=== PATIENT | male | born 1990 | race Hispanic/Latino ===

== ENCOUNTER 2019-01-04 20:06 | Emergency (ER) | payer BC ==
--- NOTE | 2019-01-04 22:11 | RAD REPORT ---
EXAM DESCRIPTION: US - Abdomen Exam Limited - 01/04/2019 9:50 pm CLINICAL HISTORY: Abdominal pain. COMPARISON: None. FINDINGS: The patient was not NPO. Consequently the gallbladder is contracted limiting evaluation. A gallstone is not visualized. The evaluation of gallbladder wall thickness nondiagnostic due to the contraction. The biliary tree is normal caliber. IMPRESSION: Grossly normal gallbladder ultrasound
[2019-01-04] MEDS ORDERED: SUCRALFATE 1 GM TABLET ONE (23:13)
--- NOTE | 2019-01-04 23:48 | ER ---
Nurse's Notes [facility] Name: Santosh Black Age: 28 yrs Sex: Male : 1990 Arrival Date: 01/04/2019 Time: 20:10 Bed 25 Private MD: Diagnosis: Unspecified abdominal pain Presentation: 01/04 20:15 Presenting complaint: Patient states: RUQ pain that started this afternoon. Transition aj of care: patient was not received from another setting of care. Onset of symptoms was January 04, 2019. Risk Assessment: Do you want to hurt yourself or someone else? Patient reports no desire to harm self or others. Initial Sepsis Screen: Does the patient meet any 2 criteria? No. Patient's initial sepsis screen is negative. Does the patient have a suspected source of infection? No. Patient's initial sepsis screen is negative. Care prior to arrival: None. 20:15 Method Of Arrival: Ambulatory aj 20:15 Acuity: JOHNSON 3 aj Triage Assessment: 20:18 General: Appears in no apparent distress. comfortable, Behavior is calm, cooperative, aj appropriate for age. Pain: Complains of pain in right upper quadrant. Neuro: Level of Consciousness is awake, alert, obeys commands, Oriented to person, place, time, situation, Appropriate for age. Respiratory: Airway is patent Respiratory effort is even, unlabored, Respiratory pattern is regular, symmetrical. GI: Abdomen is flat, non-distended, Reports upper abdominal pain. Derm: Skin is intact, is healthy with good turgor, Skin is pink, warm \T\ dry. normal. Historical: - Allergies: 20:18 No Known Allergies; aj - Home Meds: 20:18 None [Active]; aj - PMHx: 20:18 None; aj - PSHx: 20:18 None; aj - Immunization history:: Adult Immunizations up to date. - Social history:: Smoking status: Patient/guardian denies using tobacco. - Ebola Screening: : Patient negative for fever greater than or equal to 101.5 degrees Fahrenheit, and additional compatible Ebola Virus Disease symptoms Patient denies exposure to infectious person Patient denies travel to an Ebola-affected area in the 21 days before illness onset No symptoms or risks identified at this time. Screenin:08 Abuse screen: Denies threats or abuse. Denies injuries from another. Nutritional mg2 screening: No deficits noted. On. Tuberculosis screening: No symptoms or risk factors identified. Fall Risk None identified. Assessment: 21:09 General: Appears in no apparent distress. comfortable, Behavior is calm, cooperative. mg2 Pain: Complains of pain in right upper quadrant Pain does not radiate. Pain currently is 4 out of 10 on a pain scale. Quality of pain is described as aching, Pain began gradually. Neuro: Level of Consciousness is awake, alert, obeys commands, Oriented to person, place, time, situation. Cardiovascular: Capillary refill < 3 seconds Patient's skin is warm and dry. Respiratory: Airway is patent Respiratory effort is even, unlabored, Respiratory pattern is regular, symmetrical. GI: Bowel sounds present X 4 quads. Abd is soft X 4 quads. GI: Reports upper abdominal pain. : No signs and/or symptoms were reported regarding the genitourinary system. EENT: No signs and/or symptoms were reported regarding the EENT system. Derm: Skin is intact, is healthy with good turgor, Skin is pink, warm \T\ dry. normal. Musculoskeletal: Circulation, motion, and sensation intact. Capillary refill < 3 seconds. 23:50 Reassessment: Patient states feeling better. Patient states symptoms have improved. mg2 Vital Signs: 20:18 BP 102 / 52; Pulse 74; Resp 16; Temp 99.0; Pulse Ox 95% on R/A; Weight 94.8 kg; Height aj 5 ft. 11 in. (180.34 cm); 21:10 BP 115 / 60; Pulse 75; Resp 18; Pulse Ox 100% on R/A; mg2 01/05 00:04 BP 107 / 48; Pulse 78; Resp 18; Temp 98; Pulse Ox 100% on R/A; Pain 0/10; mg2 01/04 20:18 Body Mass Index 29.15 (94.80 kg, 180.34 cm) aj ED Course: 01/04 20:10 Patient arrived in ED. ds1 20:16 Triage completed. aj 20:18 Arm band placed on right wrist. Patient placed in waiting room, Patient notified of aj wait time. 20:59 [facility]C [facility] sn 20:59 Cesar Cruz MD is Attending Physician. sn 20:59 Gardose, João, RN is Primary Nurse. mg2 21:10 Patient has correct armband on for positive identification. mg2 21:10 No provider procedures requiring assistance completed. mg2 21:36 CT Stone Protocol In Process Unspecified. EDMS 21:50 US Abdomen Limited In Process Unspecified. EDMS 01/05 00:03 Patient did not have IV access during this emergency room visit. mg2 Administered Medications: 01/04 23:01 Drug: CarafATE 1 grams Route: PO; mg2 Outcome: 23:47 Discharge ordered by MD. currie 01/05 00:03 Discharged to home ambulatory. mg2 Condition: stable Discharge instructions given to patient, family, Instructed on discharge instructions, follow up and referral plans. medication usage, Demonstrated understanding of instructions, follow-up care, medications, Prescriptions given X 1. 00:05 Patient left the ED. mg2 Signatures: Dispatcher [employer] Roberta Anna, RN RN Lou Britton, PURSE FRAMER-C PURSE FRAMER-Csnw Louann Hernandez ds1 João Fry, RN RN mg2
--- NOTE | 2019-01-04 23:48 | EDPHYS ---
Physician Documentation [facility] Name: Santosh Black Age: 28 yrs Sex: Male : 1990 Arrival Date: 01/04/2019 Time: 20:10 Bed 25 Private MD: ED Physician Cesar Cruz HPI: 01/04 21:26 This 28 yrs old Male presents to ER via Ambulatory with complaints of snw Abdominal Pain. 21:26 The patient presents with abdominal pain in the epigastric area, in the right upper snw quadrant. Onset: The symptoms/episode began/occurred suddenly, at 14:00, and became persistent. The symptoms radiate to right back. Associated signs and symptoms: none. The symptoms are described as constant. Severity of pain: At its worst the pain was moderate. The patient has experienced a previous episode, approximately 2 weeks ago, and the symptoms today are exactly the same. The patient has not recently seen a physician. Historical: - Allergies: 20:18 No Known Allergies; aj - Home Meds: 20:18 None [Active]; aj - PMHx: 20:18 None; aj - PSHx: 20:18 None; aj - Immunization history:: Adult Immunizations up to date. - Social history:: Smoking status: Patient/guardian denies using tobacco. - Ebola Screening: : Patient negative for fever greater than or equal to 101.5 degrees Fahrenheit, and additional compatible Ebola Virus Disease symptoms Patient denies exposure to infectious person Patient denies travel to an Ebola-affected area in the 21 days before illness onset No symptoms or risks identified at this time. ROS: 21:25 Constitutional: Negative for fever, chills, and weight loss, Eyes: Negative for injury, snw pain, redness, and discharge, ENT: Negative for injury, pain, and discharge, Neck: Negative for injury, pain, and swelling, Cardiovascular: Negative for chest pain, palpitations, and edema, Respiratory: Negative for shortness of breath, cough, wheezing, and pleuritic chest pain, Back: Negative for injury and pain, : Negative for injury, bleeding, discharge, and swelling, MS/Extremity: Negative for injury and deformity, Skin: Negative for injury, rash, and discoloration, Neuro: Negative for headache, weakness, numbness, tingling, and seizure. 21:25 Abdomen/GI: Positive for abdominal pain, radiation to right flank, Negative for nausea, vomiting, and diarrhea, anorexia, fever. Exam: 21:25 Constitutional: This is a well developed, well nourished patient who is awake, alert, snw and in no acute distress. Head/Face: Normocephalic, atraumatic. Eyes: Pupils equal round and reactive to light, extra-ocular motions intact. Lids and lashes normal. Conjunctiva and sclera are non-icteric and not injected. Cornea within normal limits. Periorbital areas with no swelling, redness, or edema. ENT: Nares patent. No nasal discharge, no septal abnormalities noted. Tympanic membranes are normal and external auditory canals are clear. Oropharynx with no redness, swelling, or masses, exudates, or evidence of obstruction, uvula midline. Mucous membranes moist. Neck: Trachea midline, no thyromegaly or masses palpated, and no cervical lymphadenopathy. Supple, full range of motion without nuchal rigidity, or vertebral point tenderness. No Meningismus. Chest/axilla: Normal chest wall appearance and motion. Nontender with no deformity. No lesions are appreciated. Cardiovascular: Regular rate and rhythm with a normal S1 and S2. No gallops, murmurs, or rubs. Normal PMI, no JVD. No pulse deficits. Respiratory: Lungs have equal breath sounds bilaterally, clear to auscultation and percussion. No rales, rhonchi or wheezes noted. No increased work of breathing, no retractions or nasal flaring. Abdomen/GI: Soft, non-tender, with normal bowel sounds. No distension or tympany. No guarding or rebound. No evidence of tenderness throughout. Back: No spinal tenderness. No costovertebral tenderness. Full range of motion. Skin: Warm, dry with normal turgor. Normal color with no rashes, no lesions, and no evidence of cellulitis. MS/ Extremity: Pulses equal, no cyanosis. Neurovascular intact. Full, normal range of motion. Neuro: Awake and alert, GCS 15, oriented to person, place, time, and situation. Cranial nerves II-XII grossly intact. Motor strength 5/5 in all extremities. Sensory grossly intact. Cerebellar exam normal. Normal gait. Psych: Awake, alert, with orientation to person, place and time. Behavior, mood, and affect are within normal limits. Vital Signs: 20:18 BP 102 / 52; Pulse 74; Resp 16; Temp 99.0; Pulse Ox 95% on R/A; Weight 94.8 kg; Height aj 5 ft. 11 in. (180.34 cm); 21:10 BP 115 / 60; Pulse 75; Resp 18; Pulse Ox 100% on R/A; mg2 01/05 00:04 BP 107 / 48; Pulse 78; Resp 18; Temp 98; Pulse Ox 100% on R/A; Pain 0/10; mg2 01/04 20:18 Body Mass Index 29.15 (94.80 kg, 180.34 cm) aj MDM: 01/04 21:02 Patient medically screened. snw 23:43 Data reviewed: vital signs, nurses notes, radiologic studies. Data interpreted: Pulse snw oximetry: on room air is 100 %. Interpretation: normal. Counseling: I had a detailed discussion with the patient and/or guardian regarding: the historical points, exam findings, and any diagnostic results supporting the discharge/admit diagnosis, radiology results, the need for outpatient follow up, for definitive care, to return to the emergency department if symptoms worsen or persist or if there are any questions or concerns that arise at home. Special discussion: Based on the patient's Hx, exam, and Dx evaluation, there is no indication for emergent surgery or inpatient Tx. It is understood by the patient/guardian that if the Sx's persist or worsen they need to return immediately for re-evaluation. Based on the history and exam findings, there is no indication for further emergent testing or inpatient evaluation. I discussed with the patient/guardian the need to see the city council member for further evaluation of the symptoms. I discussed with the patient/guardian the need to see the primary care provider for further evaluation of the symptoms. 01/04 21:06 Order name: CT Stone Protocol snw 01/04 21:06 Order name: US Abdomen Limited; Complete Time: 22:14 snw Administered Medications: 23:01 Drug: CarafATE 1 grams Route: PO; mg2 Disposition: 01/05 06:50 Co-signature as Attending Physician, Cesar Cruz MD I agree with the assessment and [place] plan of care. Disposition: 01/04/19 23:47 Discharged to Home. Impression: Unspecified abdominal pain. - Condition is Stable. - Discharge Instructions: Abdominal Pain, Adult, Biliary Colic, Adult, Fat and Cholesterol Restricted Diet, Flank Pain, Adult. - Prescriptions for Carafate 1 gram Oral Tablet - take 1 tablet by ORAL route 4 times per day take on an empty stomach, beginning on waking and last dose at bedtime; 100 tablet. - Medication Reconciliation Form, Thank You Letter, Antibiotic Education, Prescription Opioid Use form. - Follow up: Emergency Department; When: 2 - 3 days; Reason: Recheck today's complaints, Continuance of care, Re-evaluation by your physician. Follow up: Private Physician; When: 2 - 3 days; Reason: Recheck today's complaints, Continuance of care, Re-evaluation by your physician. Signatures: Dispatcher [employer] Roberta Anna, RN RN Cesar Meza MD MD cha Therrien, Shelly, AUDIOLOGY TECHNICIAN-C AUDIOLOGY TECHNICIAN-Csnw João Fry RN RN mg2 Corrections: (The following items were deleted from the chart) 00:05 01/04 23:47 01/04/2019 23:47 Discharged to Home. Impression: Unspecified abdominal mg2 pain. Condition is Stable. Forms are Medication Reconciliation Form, Thank You Letter, Antibiotic Education, Prescription Opioid Use. Follow up: Emergency Department; When: 2 - 3 days; Reason: Recheck today's complaints, Continuance of care, Re-evaluation by your physician. Follow up: Private Physician; When: 2 - 3 days; Reason: Recheck today's complaints, Continuance of care, Re-evaluation by your physician. snw
--- NOTE | 2019-01-05 10:11 | RAD REPORT ---
EXAM DESCRIPTION: CT - Stone Protocol - 01/04/2019 9:36 pm CLINICAL HISTORY: The patient is 28 years old and is Male; ABD PAIN TECHNIQUE: Axial computed tomography images of the abdomen and pelvis without intravenous contrast. Sagittal and coronal reformatted images were created and reviewed. This CT exam was performed usi ng one or more of the following dose reduction techniques: automated exposure control, adjustment o f the mA and/or kV according to patient size, and/or use of iterative reconstruction technique. COMPARISON: None. FINDINGS: LUNG BASES: Unremarkable. No mass. No consolidation. ABDOMEN: LIVER: Unremarkable. GALLBLADDER AND BILE DUCTS: Contracted , likely postprandial. No calcified stones. No ductal d ilation. PANCREAS: Unremarkable. No ductal dilation. SPLEEN: Unremarkable. No splenomegaly. ADRENALS: Unremarkable. No mass. KIDNEYS AND URETERS: Unremarkable. No obstructing stones. No hydronephrosis. STOMACH AND BOWEL: Unremarkable. No obstruction. No mucosal thickening. PELVIS: APPENDIX: The appendix is seen and is within normal limits BLADDER: Unremarkable. No stones. REPRODUCTIVE: Unremarkable as visualized. ABDOMEN and PELVIS: INTRAPERITONEAL SPACE: Unremarkable. No free air. No significant fluid collection. BONES/JOINTS: No acute fracture. No dislocation. SOFT TISSUES: Unremarkable. VASCULATURE: Unremarkable. No abdominal aortic aneurysm. LYMPH NODES: Unremarkable. No enlarged lymph nodes. IMPRESSION: No acute abdominal or pelvic abnormality. No obstructive uropathy. Electronically signed by: Luis Enrique Nuñez DO 01/04/2019 9:51 PM CDT Due to temporary technical issues with the PACS/Fluency reporting system, reports are being signed by the in house radiologist as a courtesy to ensure prompt reporting. The interpreting radiologist is david krishnamurthyly responsible for the content of the report.
== END 2019-01-05 00:05 | disposition home or self-care (01) ==
LOC: ER 20:06
DX: R10.10 Upper abdominal pain, unspecified (principal)
CPT/HCPCS: 74176; 76377; 76705; 99283